=== PATIENT | male | born 1985 | race Caucasian/White ===

== ENCOUNTER 2020-05-08 14:06 | Emergency (ER) | payer MEDICAID, OTHER ==
[~2020-05-08] VITALS: Ht 177.8 cm; Wt 68.2 kg
[2020-05-08 14:08] VITALS: BP 116/74
[2020-05-08 15:32] LABS: CLARITY,URINE CLOUDY (Clear); GLUCOSE, URINE NEGATIVE (Neg); KETONES,URINE NEGATIVE (Neg); LEUKOCYTE ESTERASE ,URINE TRACE (Neg); NITRITES, URINE NEGATIVE (Neg); OCCULT BLOOD,URINE MODERATE (Neg); PROTEIN,URINE 100 mg/dl (Neg)
[2020-05-08 15:33] LABS: COLOR,URINE DARK YELLOW (Yellow); UA COLLECTION TYPE CLN CATCH MIDSTREAM
[2020-05-08 15:39] LABS: BACTERIA,URINE FEW /HPF (Neg); MUCUS STRANDS MODERATE /LPF (Neg); SQUAMOUS EPITHELIAL CELL,UR NONE SEEN /LPF (FEW); WBC,URINE TNTC /HPF (0-4)
[2020-05-08 15:40] LABS: SPERM FEW /HPF (NEGATIVE); WBC CLUMPS,URINE MODERATE /HPF (NEGATIVE)
[2020-05-08] MEDS ORDERED: CefTRIAXone 1000mg IM Kit (w/lidocaine diluent) IM ONE (15:50)
[2020-05-08] MEDS ORDERED: DOXY100C43 PO (15:57)
[2020-05-08] MEDS ORDERED: IBUP-1985 PO (15:57)
== END 2020-05-08 16:08 | disposition home or self-care (01) ==
LOC: ER 14:07
DX: N45.1 Epididymitis (principal); N50.812 Left testicular pain; G43.909 Migraine, unspecified, not intractable, without status migrainosus; G89.29 Other chronic pain; F12.90 Cannabis use, unspecified, uncomplicated; F15.90 Other stimulant use, unspecified, uncomplicated; F11.90 Opioid use, unspecified, uncomplicated; Z72.89 Other problems related to lifestyle; Z56.0 Unemployment, unspecified; Z79.2 Long term (current) use of antibiotics
CPT/HCPCS: 81001; 87088; 96372; 99283; J0696

== ENCOUNTER 2021-11-10 05:58 | Emergency (ER) | payer MEDICAID ==
[~2021-11-10] VITALS: Ht 177.8 cm; Wt 75.0 kg
[~2021-11-10 05:58] MED LIST: IBUP-1985 PO
[2021-11-10 07:21] VITALS: BP 125/83
[2021-11-10] MEDS ORDERED: acetaminophen 325mg tablet PO ONE (07:40)
[2021-11-10] MEDS ORDERED: ibuprofen tablet 400 MG TABLET PO ONE (07:40)
[2021-11-10] MEDS ORDERED: benzonatate 100mg capsule PO ONE (07:40)
[2021-11-10] MEDS ORDERED: NIRM1TAB PO (09:29)
== END 2021-11-10 09:35 | disposition home or self-care (01) ==
LOC: ER 05:59
DX: U07.1 COVID-19 (principal); G43.909 Migraine, unspecified, not intractable, without status migrainosus; G89.29 Other chronic pain; M54.50 Low back pain, unspecified; F12.90 Cannabis use, unspecified, uncomplicated; F15.20 Other stimulant dependence, uncomplicated; F19.10 Other psychoactive substance abuse, uncomplicated; Z56.0 Unemployment, unspecified
CPT/HCPCS: 87081; 87635; 87880; 99284; C9803

== ENCOUNTER 2022-06-19 01:45 | Emergency (ER) | payer MEDICAID ==
[~2022-06-19] VITALS: Ht 177.8 cm; Wt 81.8 kg
[~2022-06-19 01:45] MED LIST changes: +NIRM1TAB PO
[2022-06-19 01:56] VITALS: BP 113/81
== END 2022-06-19 06:49 | disposition home or self-care (01) ==
LOC: ER 01:46
DX: S51.011A Laceration without foreign body of right elbow, initial encounter (principal); Z53.21 Procedure and treatment not carried out due to patient leaving prior to being seen by health care provider; W18.39XA Other fall on same level, initial encounter; Y93.89 Activity, other specified; Y92.89 Other specified places as the place of occurrence of the external cause; Y99.8 Other external cause status
CPT/HCPCS: 99281

== ENCOUNTER 2024-02-15 14:55 | Emergency (ER) | payer MEDICAID ==
[~2024-02-15] VITALS: Ht 175.3 cm; Wt 72.0 kg
[2024-02-15] MEDS ORDERED: METHADONE HCL 10MG/1 ML 1mL ORAL SYRINGE PO SCH (15:20)
[2024-02-15] MEDS: methadone 5mg tablet PO ONE (16:30)
[2024-02-15 16:40] VITALS: BP 120/78; PULSE 75; RESP 17; TEMP 97.9; O2SAT 99
== END 2024-02-15 16:42 | disposition home or self-care (01) ==
LOC: ER 14:56
DX: F19.10 Other psychoactive substance abuse, uncomplicated (principal); F12.90 Cannabis use, unspecified, uncomplicated; F15.90 Other stimulant use, unspecified, uncomplicated; F11.90 Opioid use, unspecified, uncomplicated; G89.29 Other chronic pain; M54.9 Dorsalgia, unspecified; G43.909 Migraine, unspecified, not intractable, without status migrainosus; Z56.0 Unemployment, unspecified; Z79.899 Other long term (current) drug therapy
CPT/HCPCS: 99283

== ENCOUNTER 2024-03-16 13:43 | Emergency (ER) | payer MEDICAID ==
[~2024-03-16] VITALS: Ht 175.3 cm; Wt 74.2 kg
[2024-03-16 13:48] VITALS: BP 112/68; PULSE 77; RESP 16; TEMP 98.4; O2SAT 97
[2024-03-16 14:14] LABS: BASOPHILS % (AUTO) 0.6 % (0-1); EOSINOPHILS % (AUTO) 0.6 % (0-6); HEMATOCRIT 40.4 % (42.0-52.0); HEMOGLOBIN 14.2 g/dl (14.0-17.9); LYMPHOCYTES # (AUTO) 1.9 X10'3 (1.1-4.8); LYMPHOCYTES % (AUTO) 27.6 % (21-51); MEAN CORPUSCULAR HEMOGLOBIN 32.7 PG (27.0-31.0); MEAN CORPUSCULAR HGB CONC 35.1 g/dL (33.0-36.5); MEAN CORPUSCULAR VOLUME 93.3 FL (78-98); MEAN PLATELET VOLUME 8.4 FL (7.4-10.4); MONOCYTES # (AUTO) 0.4 X10'3 (0-0.9); MONOCYTES % (AUTO) 5.4 % (2-12); NEUTROPHILS # (AUTO) 4.5 X10'3 (1.8-7.7); NEUTROPHILS % (AUTO) 65.8 % (42-75); PLATELET COUNT 224 X10'3 (140-440); RED BLOOD COUNT 4.33 X10'6 (4.70-6.10); RED CELL DISTRIBUTION WIDTH 14.4 % (11.5-14.5); WHITE BLOOD COUNT 6.8 X10'3 (4.5-11.0)
[2024-03-16 14:22] LABS: BILIRUBIN,URINE NEGATIVE (Neg); CLARITY,URINE CLEAR (Clear); COLOR,URINE YELLOW (Yellow); GLUCOSE, URINE NEGATIVE (Neg); KETONES,URINE NEGATIVE (Neg); LEUKOCYTE ESTERASE ,URINE NEGATIVE (Neg); NITRITES, URINE NEGATIVE (Neg); OCCULT BLOOD,URINE NEGATIVE (Neg); PH,URINE 5.5 (4.8-8.0); PROTEIN,URINE NEGATIVE (Neg); UROBILINOGEN,URINE 0.2 E.U/dL (0.2-1.0)
[2024-03-16 14:26] LABS: UA COLLECTION TYPE CLN CATCH MIDSTREAM
[2024-03-16 14:27] LABS: ALANINE AMINOTRANSFERASE 49 U/L (12-78); ALBUMIN 4.4 G/DL (3.4-5.0); ALBUMIN/GLOBULIN RATIO 1.2 (1.1-1.5); ALKALINE PHOSPHATASE 92 IU/L (46-116); ANION GAP 14 (8-16); ASPARTATE AMINO TRANSFERASE 37 U/L (10-37); BILIRUBIN,TOTAL 0.7 MG/DL (0.1-1.0); BLOOD UREA NITROGEN 15 MG/DL (7-18); BUN/CREATININE RATIO 13.6 (10.0-20.0); CALCIUM 8.8 MG/DL (8.5-10.1); CHLORIDE 105 MMOL/L (99-107); GLUCOSE 87 MG/DL (70-104); LIPASE 27 U/L (16-77); POTASSIUM 3.8 MMOL/L (3.5-5.1); SODIUM 144 MMOL/L (135-145); TOTAL CARBON DIOXIDE 25.1 MMOL/L (24-32); TOTAL PROTEIN 8.2 G/DL (6.4-8.2); eCRCL 91 ML/MIN; eGFR 75 ML/MIN
[2024-03-16] MEDS ORDERED: iohexol 300mg/ml 100ml inj. ONE (16:23)
== END 2024-03-16 18:04 | disposition home or self-care (01) ==
LOC: ER 13:43
DX: R10.32 Left lower quadrant pain (principal); R19.7 Diarrhea, unspecified; G89.29 Other chronic pain; M54.9 Dorsalgia, unspecified; G43.909 Migraine, unspecified, not intractable, without status migrainosus; F12.90 Cannabis use, unspecified, uncomplicated; F15.90 Other stimulant use, unspecified, uncomplicated; F11.90 Opioid use, unspecified, uncomplicated; Z56.0 Unemployment, unspecified
CPT/HCPCS: 36415; 74176; 80053; 81003; 83690; 85025; 99284; Q9967

== ENCOUNTER 2025-02-13 12:25 | Emergency (ER) | payer MEDICAID ==
[~2025-02-13] VITALS: Ht 175.3 cm; Wt 71.4 kg
[~2025-02-13 12:25] MED LIST changes: -IBUP-1985 PO; +IBUP600T52 PO
[2025-02-13 12:35] VITALS: BP 104/68; PULSE 91; TEMP 98.1; O2SAT 97
[2025-02-13 14:09] VITALS: RESP 16
--- NOTE | 2025-02-13 14:32 | Physician Documentation ---
History of Present Illness ~ General Chief Complaint: Multiple Medical Complaints Stated Complaint: EAR PAIN Time Seen by MD: 14:00 Primary Medical Doctor: FEDERICO Mode of Arrival: Ambulatory History of Present Illness Initial Comments Patient grabiels a 40 yo male that presents to [facility] for evaluation of right sided ear pain with darinage and concern for staff infection to his hands bilaterally. Medication Reconciliation Allergies: Coded Allergies: No Known Allergies (Unverified , 02/13/25) Scheduled Nirmatrelvir/Ritonavir (Paxlovid Co-Pack (Eua)), 3 EACH PO BID Scheduled PRN Ibuprofen (Ibuprofen), 1 TAB PO Q8H PRN for pain Past Medical History Past Medical History: Migraine, Chronic Back Pain Past Surgical History: no surgical history Alcohol Use: Sober Drug Use: marijuana, methamphetamine, heroin Lives with: S/O Lives In: Home Occupation: unemployed Review of Systems ROS As stated above in the HPI, otherwise all systems are reviewed and negative. Physical Exam Physical Exam Vital Signs: Temperature: 98.1, Source: Temporal, Heart Rate: 91, Respiratory Rate: 16, BP: 104/68, Pulse Oximetry: 97, Weight: 71.400 Oxygen Flow Rate: 0 Physical Exam VITALS: Reviewed and as above. GENERAL: Alert, no apparent distress. HEENT: Normocephalic, atraumatic, PERRL, EOMI, dry mucosa, no erythema, perforation to the right TM. RESPIRATORY: Lungs clear, normal breath sounds, no respiratory distress. CHEST: No accessory muscle use, no retractions CV: Regular rate, rhythm, no edema, no murmur, No: JVD GI: Soft, non-tender, bowels sounds present, no rebound, guarding, or rigidity BACK: No CVA tenderness, or swelling MUSCULOSKELETAL No deformities, no edema SKIN: Warm and dry, areas of infection with mild induration surrounding each pustule, consistent with staff infection. NEURO: Oriented x4, No motor or sensory deficit PSYCH: Normal mood and affect, no agitation Progress Results/Orders Results/Orders Vital Signs 02/13/25 02/13/25 12:35 14:09 Temp 98.1 Pulse 91 Resp 16 16 B/P (MAP) 104/68 Pulse Ox 97 O2 Flow Rate 0 Medical Decision Making Additional information obtaine: other Findings Diagnosis: Subacute tympanic membrane perforation Uncomplicated Staphylococcus infection of bilateral hands Medical Decision-Making: Patient presents with a subacute tympanic membrane perforation. Based on current evidence, most traumatic or infectious TM perforations heal spontaneously, but topical quinolone antibiotics such as ofloxacin are preferred for active otorrhea or to accelerate closure, given their efficacy and safety profile in the setting of a non-intact tympanic membrane. Ofloxacin otic solution is well tolerated, achieves high local concentrations, and is not associated with ototoxicity. The patient will be treated with ofloxacin otic drops. For the uncomplicated Staphylococcus infection of both hands, the [employer] [place] [employer] recommend oral antibiotics for nonpurulent skin and soft tissue infections, with doxycycline as an appropriate choice for coverage of Staphylococcus species, including MRSA, in the absence of systemic illness or complicating factors. The infection is localized, without evidence of systemic involvement, abscess, or complicating features. Treatment Plan: Ofloxacin otic drops for TM perforation, per standard dosing protocol Doxycycline for uncomplicated Staphylococcus infection of the hands, per standard oral dosing Keep affected ear dry; avoid water exposure Monitor for worsening otorrhea, hearing loss, vertigo, or signs of systemic infection Strict return precautions: instruct patient to seek immediate care for fever, spreading erythema, severe pain, hearing changes, vertigo, or any signs of systemic illness Follow up with primary care provider for reassessment and ongoing management Disposition: Patient stable for discharge. All instructions reviewed. Patient understands the importance of medication adherence, ear protection, and return precautions. Differential Diagnosis TM perofration, Staff infection Departure Disposition: 01 HOME / SELF CARE / HOMELESS Impression: Primary Impression: Tympanic membrane perforation Additional Impression: Staphylococcal infection of skin Condition: Stable Additional Instructions: Diagnosis: Subacute tympanic membrane (eardrum) perforation Uncomplicated Staphylococcus infection of both hands Medications: Ofloxacin ear drops: 5 drops every 12 hours for 10 days. Doxycycline: 100 mg every 12 hours for 10 days. Ear Care Instructions: Keep the affected ear dry. Do not allow water to enter the ear canal during bathing or showering. Avoid swimming until cleared by your healthcare provider. Administer ofloxacin drops as instructed. After instilling drops, gently press the small bump in front of your ear (tragus) several times to help the medicine reach the middle ear. Do not insert cotton swabs, fingers, or other objects into the ear canal. Hand Care Instructions: Take doxycycline as prescribed. Wash hands gently with soap and water; pat dry. Keep any wounds clean and covered if draining. Avoid picking at or scratching the affected areas. Activity and Follow-Up: Resume normal activities as tolerated, but avoid activities that may expose the ear to water or trauma. Follow up with your primary care provider as scheduled for reassessment. Return Precautions: Seek medical attention immediately if you experience any of the following: Fever over 101F (38.3C) Increasing redness, swelling, or pain in the hands Spreading rash or drainage Hearing loss, ringing in the ear, dizziness, or new ear pain Persistent or worsening ear discharge Any other concerning symptoms Additional Instructions: Complete the full course of all prescribed medications, even if symptoms improve. If you miss a dose, take it as soon as you remember, but do not double up on doses. Contact Information: If you have questions or concerns, contact your healthcare provider or return to the clinic or emergency department. Thank you for following these instructions to support your recovery. Referrals: NO PRIMARY CARE PROVIDER (PCP) Prescriptions Doxycycline Hyclate (Doxycycline Hyclate) 100 Mg Capsule 1 CAP PO Q12H for 10 Days, #20 CAP Prov: FILEMON MCKEON 02/13/25 Ofloxacin (Ofloxacin) 0.3 % Drops 5 DROP RIGHT EAR Q12H for 10 Days, #5 ML 0 Refills Prov: FILEMON MCKEON 02/13/25 Education Educated: Patient Educated regarding: diagnosis, treatment, need for follow up Signature Scribe Signature: A Attestation: Scribed for Filemon Mckeon by KEVON Parks . 02/13/25 14:54 FILEMON MCKEON Feb 13, 2025 14:32
[2025-02-13] MEDS ORDERED: OFLO5DRO5 RIGHT EAR (14:52)
[2025-02-13] MEDS ORDERED: DOXY-1 PO (14:52)
== END 2025-02-13 15:29 | disposition home or self-care (01) ==
LOC: ER 12:26
DX: H72.91 Unspecified perforation of tympanic membrane, right ear (principal); L08.9 Local infection of the skin and subcutaneous tissue, unspecified; G43.909 Migraine, unspecified, not intractable, without status migrainosus; F12.90 Cannabis use, unspecified, uncomplicated; F15.90 Other stimulant use, unspecified, uncomplicated
CPT/HCPCS: 99282; 99283